=== PATIENT | male | born 1990 | race Two or more races ===

== ENCOUNTER 2016-12-19 16:32 | Emergency (ER) | payer OTHER ==
[2016-12-19] MEDS ORDERED: Ibuprofen 600 MG Tab PO ONE (17:11)
--- NOTE | 2016-12-19 17:18 | EDM.PDOC ---
ED HPI GENERAL MEDICAL PROBLEM - General Chief Complaint: Back Pain or Injury Stated Complaint: BACK PAIN Time Seen by Provider: 12/19/16 16:48 Source of Information: Reports: Patient, RN Notes Reviewed History Limitations: Reports: No Limitations - History of Present Illness INITIAL COMMENTS - FREE TEXT/NARRATIVE: The patient states that he was lifting a heavy object while working at [employer] around 10:30 this morning, when he developed a sudden pain in his lower back. The pain does not radiate. It is made worse with walking and stretching. No tingling, numbness, or weakness. No prior similar symptoms. The patient has not tried to take any medications or treatments today. The patient does not have a PCP. Middle Back Pain Score (Numeric/FACES): 8 - Related Data Allergies Allergy/AdvReac Type Severity Reaction Status Date / Time No Known Allergies Allergy Verified 12/19/16 16:44 Home Meds: Home Meds . [No Known Home Meds] 12/19/16 [History] Past Medical History - Past Health History Medical/Surgical History: Denies Medical/Surgical History Social & Family History - Tobacco Use Smoking Status *Q: Never Smoker - Caffeine Use Caffeine Use: Reports: Coffee - Alcohol Use Alcohol Use History: No - Recreational Drug Use Recreational Drug Use: No - Living Situation & Occupation Living situation: Reports: Single, Alone Occupation: Employed ([employer]) ED ROS GENERAL - Review of Systems Review Of Systems: See Below Constitutional: Reports: No Symptoms HEENT: Reports: No Symptoms Respiratory: Reports: No Symptoms Cardiovascular: Reports: No Symptoms Endocrine: Reports: No Symptoms GI/Abdominal: Reports: No Symptoms : Reports: No Symptoms Musculoskeletal: Reports: No Symptoms Skin: Reports: No Symptoms Neurological: Reports: No Symptoms Psychiatric: Reports: No Symptoms Hematologic/Lymphatic: Reports: No Symptoms Immunologic: Reports: No Symptoms ED EXAM,LOWER BACK PAIN/INJURY - Physical Exam Exam: See Below Exam Limited By: No Limitations General Appearance: Alert, WD/WN, No Apparent Distress Back Exam: Other (No visible abnormality to the patient's lower back, such as swelling, erythema, or ecchymosis. There is a punctate area of tenderness, approximately over the L4/L5 spinous processes, with no paraspinous tenderness. The patient is able to flex the spine to 90, however, pain was induced in his lower back when straightening up. He is able to extend the spine to approximately 30. He is able to tilt the spine to approximately 45 bilaterally. He is able to twist the spine to approximately 45 bilaterally. Unilateral knee bend is normal, bilaterally. Straight leg raise is negative to 90 bilaterally.) Course - Vital Signs Last Recorded V/S: Last Vital Signs Temp 36.7 C 12/19/16 16:44 Pulse 73 12/19/16 16:44 Resp 18 12/19/16 16:44 BP 135/91 H 12/19/16 16:44 Pulse Ox 98 12/19/16 16:44 - Orders/Labs/Meds Meds: Medications Discontinued Medications Generic Name Dose Route Start Last Admin Trade Name Freq PRN Reason Stop Dose Admin Ibuprofen 600 mg 12/19/16 17:11 12/19/16 17:22 Motrin PO 12/19/16 17:12 600 mg ONETIME ONE Administration - Re-Assessments/Exams Free Text/Narrative Re-Assessment/Exam: 12/19/16 17:12 Based on the patient's history and physical examination, the patient appears to have strained some connective tissue in his lumbar region, likely around the L4/ L5 area. Nothing in his history or physical examination suggests that he has a herniated intervertebral disc. I'm recommending [id number] ibuprofen as needed for discomfort, and I am going to write a note for work preventing him from both flexing and lifting, for the next few days. After that, I would like the patient to gradually increase flexing and lifting, but if his pain recurs, I would like him to follow-up with either Dr. Pugh or Dr. Mcneal in the clinic. Departure - Departure Time of Disposition: 17:13 Disposition: Home, Self-Care 01 Condition: Good Clinical Impression: Low back strain - Discharge Information Instructions: Back Pain, Adult, [id number] Referrals: PCP,None [Primary Care Provider] - Daisy Pugh [Physician] - Forms: ED Department Discharge, ED Return to Work/School Form Additional Instructions: You were seen in the emergency room after injuring your lower back while lifting a heavy object at work. Based on your history and physical examination in the ER, you have MOST LIKELY strained some connective tissue in your lower back. We are recommending that you take [id number] ibuprofen, 2-3 tablets (400- 600 mg) every 8 hours, with food, as needed for discomfort. A note for work has been written, recommending no lifting or flexing through , 11/22/2016, after which you should resume flexing and lifting, as tolerated. If your pain returns, we recommend that you follow-up with either Dr. Pugh or Dr. Mcneal in the clinic, for further evaluation. If any other problems, please do not hesitate to return to the ER.
== END 2016-12-19 17:30 | disposition home or self-care (01) ==
LOC: JD.ED 16:32
DX: S39.012A Strain of muscle, fascia and tendon of lower back, initial encounter (principal); X50.0XXA Overexertion from strenuous movement or load, initial encounter
CPT/HCPCS: 99283; A9270; 99282